=== PATIENT | male | born 1960 ===

== ENCOUNTER 2021-01-11 18:21 | Inpatient (IN) | payer BC, SELFPAY ==
[~2021-01-11] VITALS: Ht 175.3 cm; Wt 146.1 kg
[2021-01-11] MEDS ORDERED: ACETAMINOPHEN 325 MG TABLET PO PRN (19:00)
[2021-01-11 19:40] VITALS: BP_SYST 144
[2021-01-11 22:29] LABS: BASOPHILS % (AUTO) 0.4 % (0.0-2.0); EOSINOPHILS # (AUTO) 0.2 K/uL (0.0-0.4); EOSINOPHILS % (AUTO) 2.4 % (0.0-4.0); HEMATOCRIT 36.8 % (36-54); HEMOGLOBIN 12.4 g/dL (14.0-18.0); LYMPHOCYTES # (AUTO) 1.3 K/uL (1.0-5.5); LYMPHOCYTES % (AUTO) 14.9 % (20.5-51.5); MEAN CORPUSCULAR HEMOGLOBIN 28 pg (27-31); MEAN CORPUSCULAR HGB CONC 34 % (32-36); MEAN CORPUSCULAR VOLUME 82 fL (79.0-98.0); MONOCYTES # (AUTO) 0.6 K/uL (0.0-1.0); MONOCYTES % (AUTO) 6.5 % (1.7-9.3); NEUTROPHILS # (AUTO) 6.7 K/uL (1.8-7.7); NEUTROPHILS % (AUTO) 75.8 % (40.0-70.0); PLATELET COUNT (AUTO) 228 K/uL (130-430); RED BLOOD CELL COUNT(AUTO) 4.49 MIL/uL (4.2-6.2); RED CELL DISTRIBUTION WIDTH 16.4 % (9.0-15.0); WHITE BLOOD COUNT (AUTO) 8.8 K/uL (4.8-10.8)
[2021-01-11 22:43] LABS: CREATININE 1.49 mg/dL (0.55-1.30); POTASSIUM 3.9 mmol/L (3.5-5.1)
[2021-01-11 22:44] LABS: INR 1.7 (0.80-1.20); PROTHROMBIN TIME 17.3 SECS (9.5-12.5)
[2021-01-11 22:57] LABS: ALBUMIN 3.6 g/dL (3.4-4.8); THYROID STIMULATING HORMONE 1.55 uIu/mL (0.36-3.74); TOTAL BILIRUBIN 0.7 mg/dL (0.0-1.0)
[2021-01-11 23:07] VITALS: BP_SYST 144
[2021-01-11 23:21] LABS: ERYTHROCYTE SEDIMENTATION RATE 13 MM/HR (0-15)
[2021-01-12 00:32] VITALS: BP_SYST 119
[2021-01-12 06:20] LABS: BILIRUBIN,URINE NEGATIVE (NEGATIVE); BLOOD, URINE 1+ (NEGATIVE); CLARITY/URINE CLEAR (CLEAR); COLOR,URINE YELLOW (YELLOW); GLUCOSE,URINE NEGATIVE (NEGATIVE); KETONES,URINE NEGATIVE (NEGATIVE); LEUKOCYTE ESTERASE ,URINE NEGATIVE (NEGATIVE); NITRITE, URINE NEGATIVE (NEGATIVE); PROTEIN URINE NEGATIVE (NEGATIVE); UROBILINOGEN,URINE 0.2 (0.2-1.0)
[2021-01-12 07:29] LABS: BACTERIA,URINE FEW /HPF (None Seen); WBC,URINE 0-3 /HPF (0-3)
[2021-01-12 07:30] VITALS: BP_SYST 157
[2021-01-12] MEDS ORDERED: NACL 0.9% 1,000 ML IV SCH (08:00)
[2021-01-12 08:30] VITALS: BP_SYST 158
[2021-01-12] MEDS ORDERED: PANTOPRAZOLE SODIUM 40 MG TAB PO SCH (09:00)
[2021-01-12] MEDS ORDERED: METOPROLOL SUCCINATE 50 MG TAB.SR.24H (TOPROL XL) PO SCH (09:00)
[2021-01-12 09:30] VITALS: BP_SYST 164
[2021-01-12 10:30] VITALS: BP_SYST 156
== END 2021-01-12 10:45 | disposition short-term general hospital (02) | DRG 871 ==
LOC: SMU 18:21 → UNDOADMIN 18:21 → SMU 01-12 07:12 → SIC 01-12 07:49
PROVIDERS: ADMIT Internal Medicine Cardiovascular Disease; ATTEND Internal Medicine Cardiovascular Disease
DX: A41.9 Sepsis, unspecified organism (principal); I62.00 Nontraumatic subdural hemorrhage, unspecified; D68.0 Von Willebrand disease; N39.0 Urinary tract infection, site not specified; D68.9 Coagulation defect, unspecified; Z68.42 Body mass index [BMI] 45.0-49.9, adult; E66.01 Morbid (severe) obesity due to excess calories; R31.9 Hematuria, unspecified; E11.9 Type 2 diabetes mellitus without complications; I10 Essential (primary) hypertension; N28.89 Other specified disorders of kidney and ureter; Z20.822 Contact with and (suspected) exposure to COVID-19; Z87.442 Personal history of urinary calculi
CPT/HCPCS: 36415; 70450-TC; 71045; 76376; 80053; 81000; 83036; 83880; 84443; 84484; 85025; 85610-TC; 85651-TC; 85730-TC; 87040-TC; 93005; J0696; J7060